=== PATIENT | male | born 1985 | race Caucasian/White ===

== ENCOUNTER 2016-09-28 07:41 | Emergency (ER) | payer SELFPAY ==
--- NOTE | ~2016-09-28 | ER ---
PATIENT'S NAME: [facility] AGE: 31 Y [address] ROOM: [place] [address] LOCATION: [facility] ADMIT DATE: 09/28/2016 ER/Outpatient Report DISCHARGE DATE: 09/28/2016 FAMILY PHYSICIAN: Bhargav Calvillo MD ATTENDING PHYSICIAN: Maria Victoria Rivas TIME OF ARRIVAL: 0741 hours. TIME SEEN: 0756 hours. IDENTIFICATION: A 31-year-old male. CHIEF COMPLAINT: "Feeling sick." HISTORY OF PRESENT ILLNESS: The patient said for 2 days he has had nausea, vomiting, and diarrhea. His stool was a little more solid this morning. It started Tuesday evening. He has had no fever or chills. He has vomited 3 times today. He had 4-5 diarrhea episodes yesterday. No ill contacts. They were camping but no one they were camping with is ill. ALLERGIES: NO KNOWN DRUG ALLERGIES. CURRENT MEDICATIONS: No current medications. MEDICAL PROBLEMS: No significant medical problems, history of hemorrhoids, clinical depression and anxiety, but not medically managed at this time. SOCIAL HISTORY: Tobacco use, half-pack per day for 20 years. Alcohol use, social. Drug use, denies. PREVIOUS SURGERIES: Appendectomy. FAMILY HISTORY: Mother with "colon problems" and COPD. PATIENT'S NAME: [facility] AGE: 31 Y [address] ROOM: [place] [address] LOCATION: [facility] ADMIT DATE: 09/28/2016 ER/Outpatient Report DISCHARGE DATE: 09/28/2016 FAMILY PHYSICIAN: Bhargav Calvillo MD ATTENDING PHYSICIAN: Maria Victoria Rivas REVIEW OF SYSTEMS: All systems reviewed and negative other than what is noted in the HPI. PHYSICAL EXAMINATION: VITAL SIGNS: Height 6 feet, 5 inches and weight 77.7 kg. Blood pressure 117/79, pulse 55, respirations 16, temp 96.5, and sats 98%. GENERAL: A pleasant 31-year-old male in no acute distress. HEENT: Head: Normocephalic, atraumatic. Ears: TMs translucent both ears. Mucosa: [place], no lesions. Mouth: No lesions. Pharynx benign. NECK: Supple. No lymphadenopathy. Mucous membranes are moist. LUNGS: Clear to auscultation. HEART: Regular rate and rhythm. ABDOMEN: Soft, nondistended, minimally tender to deep palpation. No rebound or guarding. SKIN: [place], warm, and dry. No lesions or rashes noted. NEURO: No focal deficit. EMERGENCY DEPARTMENT COURSE: The patient was given 1 L of normal saline bolus and Zofran 4 mg IV with improvement of his symptoms. He had no diarrhea stools here. Chemistry panel, CBC are all within normal limits. IMPRESSION: Gastroenteritis. PLAN: Clear liquids, small amounts at frequent intervals, advance diet as tolerated, Zofran 4 mg 1 p.o. q.6 h. p.r.n. nausea, dispensed 6 with 0 refills. Follow up with primary care in 1 to 3 days. Follow up sooner if any problems or concerns. No work today or tomorrow. Okay to return on September 30 if symptoms have resolved. The patient understands and agrees and all questions have been answered. MARIA VICTORIA RIVAS MD CAR/modl /[id number] d: 09/29/16 0006 t: 10/10/16 0834, OUTPATIENT REPORT
[2016-09-28 08:17] LABS: BASOPHIL # 0.1 K/uL (0.0-0.2); BASOPHIL % 1.1 %; EOSINOPHIL # 0.3 K/uL (0.0-0.5); EOSINOPHIL % 3.2 %; HEMATOCRIT 45.5 % (37.0-53.0); HEMOGLOBIN 15.9 g/dL (12.0-17.0); IMMATURE GRANULOCYTE % 0.2 %; LYMPHOCYTE # 1.6 K/uL (0.8-4.0); LYMPHOCYTE % 17.1 %; MCH 32.8 pg (27.0-34.0); MCHC 34.9 gm/dL (32.0-36.5); MCV 93.8 fl (83.0-98.0); MONOCYTE # 0.6 K/uL (0.0-1.0); MONOCYTE % 5.9 %; MPV 11.2 fl (9.4-12.4); NEUTROPHIL # (ANC) 6.9 K/uL (1.4-9.0); NEUTROPHIL % 72.5 %; NRBC % 0 /100WBC (0-0.00); PLATELET COUNT 185 K/uL (150-450); RBC 4.85 M/uL (4.00-6.00); RDW-CV 12.5 % (11.9-14.6); WBC 9.5 K/uL (4.0-11.0)
[2016-09-28 08:35] LABS: ALBUMIN 3.8 gm/dL (3.5-5.0); ALK PHOS 75 IU/L (33-138); ALT 24 IU/L (12-78); ANION GAP 11.1 (10.0-19.0); AST 17 IU/L (10-40); BLOOD UREA NITROGEN 19 mg/dL (6-24); CALCIUM 8.5 mg/dL (8.5-10.5); CHLORIDE 111 mMol/L (96-110); CO2 22 mMol/L (22-32); CREATININE 0.9 mg/dL (0.6-1.3); ESTIMATED GFR (MDRD EQUATION) > 60; POTASSIUM 4.1 mMol/L (3.7-5.1); SODIUM 140 mMol/L (135-145); TOTAL BILIRUBIN 0.2 mg/dL (0.0-1.5); TOTAL PROTEIN 7.4 g/dL (6.0-8.4)
== END 2016-09-28 09:27 | disposition disaster alternative care site (69) ==
LOC: GMED 07:41
PROVIDERS: Family Medicine
DX: K52.9 Noninfective gastroenteritis and colitis, unspecified (principal); F17.210 Nicotine dependence, cigarettes, uncomplicated; F32.9 Major depressive disorder, single episode, unspecified; F41.9 Anxiety disorder, unspecified; Z90.49 Acquired absence of other specified parts of digestive tract
CPT/HCPCS: J2405; J7030